=== PATIENT | male | born 1975 ===

== ENCOUNTER 2025-03-01 06:15 | Day surgery (SDC) | payer OTHER ==
[2025-02-23 15:57] VITALS: BP 150/74
[~2025-03-01] VITALS: Ht 167.6 cm; Wt 81.6 kg
[~2025-03-01 06:15] MED LIST: ATORVASTATIN CA80 MG PO; CARVEDILOL25 M1 PO; FAMOTIDINE40 MG PO; HUMALOG MI100 UNIT/2; JARDIANCE10 MG PO; PLAVIX75 MG PO; ZETIA10 MG PO
[2025-03-01] MEDS ORDERED: CEFTRIAXONE SODIUM 2,000 MG VIAL ONE (09:55)
[2025-03-01] MEDS ORDERED: ENOXAPARIN SODIUM 40 MG/0.4 ML SYRINGE SUBCUTANEO ONE (09:55)
[2025-03-01] MEDS ORDERED: METRONIDAZOLE/SODIUM CHLORIDE 500 MG/100 ML PIGGYBACK IV ONE (09:57)
[2025-03-01] MEDS ORDERED: BUPIVACAINE HCL/MPF 0.5% 30ML VIAL ONE (10:53)
[2025-03-01] MEDS ORDERED: SUGAMMADEX SODIUM 200 MG/2 ML VIAL IV ONE (12:53)
[2025-03-01] MEDS ORDERED: MORPHINE SULFATE 4 MG/ML VIAL IV ONE ×2 (13:30→14:30)
[2025-03-01] MEDS ORDERED: POLY119PG PO (13:37)
[2025-03-01] MEDS ORDERED: PERCOCET 5-3251 EACH PO (13:37)
[2025-03-01] MEDS ORDERED: NEURONTIN300 MG PO (13:37)
== END 2025-03-01 16:00 | disposition home or self-care (01) ==
LOC: CIR.AMB 06:15
PROVIDERS: ATTEND Surgery
DX: K42.0 Umbilical hernia with obstruction, without gangrene (principal); Z88.6 Allergy status to analgesic agent
CPT/HCPCS: 49594; C1781